=== PATIENT | male | born 1955 | race Caucasian/White ===

== ENCOUNTER → 2023-05-08 13:29 | Outpatient (BNVA) | payer MEDICARE, MEDICAID, SELFPAY | PROVIDERS: PCP Nurse Practitioner Family; Referring Provider Nurse Practitioner Family; Visit Provider Psychiatry & Neurology Neurology | DX: R53.1 Weakness (principal); R29.2 Abnormal reflex; R29.6 Repeated falls; I95.9 Hypotension, unspecified; G90.A Postural orthostatic tachycardia syndrome [POTS]; R42 Dizziness and giddiness | CPT/HCPCS: 99205 ==

== ENCOUNTER → 2023-07-18 14:50 | Outpatient (BNVA) | payer MEDICARE, MEDICAID, SELFPAY | PROVIDERS: PCP Nurse Practitioner Family; Referring Provider Nurse Practitioner Family; Visit Provider Psychiatry & Neurology Neurology | DX: R53.1 Weakness (principal); R29.2 Abnormal reflex; R29.6 Repeated falls; I95.9 Hypotension, unspecified; G90.A Postural orthostatic tachycardia syndrome [POTS]; R42 Dizziness and giddiness | CPT/HCPCS: 99214 ==

== ENCOUNTER → 2023-09-24 13:37 | Outpatient (BNVA) | payer MEDICARE, MEDICAID, SELFPAY | PROVIDERS: PCP Nurse Practitioner Family; Referring Provider Nurse Practitioner Family; Visit Provider Psychiatry & Neurology Neurology | DX: R53.1 Weakness (principal); R29.2 Abnormal reflex; R29.6 Repeated falls; I95.9 Hypotension, unspecified; G90.A Postural orthostatic tachycardia syndrome [POTS]; R42 Dizziness and giddiness | CPT/HCPCS: 99213 ==

== ENCOUNTER → 2024-03-24 12:51 | Outpatient (BNVA) | payer MEDICARE, MEDICAID, SELFPAY | PROVIDERS: PCP Nurse Practitioner Family; Referring Provider Nurse Practitioner Family; Visit Provider Psychiatry & Neurology Neurology | DX: R53.1 Weakness (principal); R29.2 Abnormal reflex; R42 Dizziness and giddiness; R29.6 Repeated falls; I95.9 Hypotension, unspecified; G90.A Postural orthostatic tachycardia syndrome [POTS]; L98.9 Disorder of the skin and subcutaneous tissue, unspecified | CPT/HCPCS: 99214 ==

== ENCOUNTER → 2025-02-03 10:44 | Outpatient (BNVA) | payer MEDICARE, MEDICAID, SELFPAY | PROVIDERS: PCP Nurse Practitioner Family; Referring Provider Nurse Practitioner Family; Visit Provider Psychiatry & Neurology Neurology | DX: R53.1 Weakness (principal); R29.2 Abnormal reflex; R29.6 Repeated falls; I95.9 Hypotension, unspecified; G90.A Postural orthostatic tachycardia syndrome [POTS]; R42 Dizziness and giddiness; E11.59 Type 2 diabetes mellitus with other circulatory complications; I10 Essential (primary) hypertension | CPT/HCPCS: 99214 ==